=== PATIENT | male | born 1975 | race Caucasian/White ===

== ENCOUNTER 2024-01-25 11:04 | Emergency (ER) | payer OTHER, SELFPAY ==
[2024-01-25 11:06] VITALS: BP 139/98
--- NOTE | 2024-01-25 11:30 | ED.GENMED ---
History of Present Illness
General
Chief Complaint: Crisis Evaluation
Source: patient
Time Seen by Provider: 01/25/24 11:18
Travel History
Have you had any contact with someone who has COVID-19?: No
Do you have any symptoms of coronavirus? Fever > 100 degrees, chills, cough, shortness of breath, sore throat, loss of taste or smell, muscle aches, or headache?: No
History of Present Illness
History of Present Illness:
48-year-old male who presents for evaluation of a rash. He initially presented to crisis. The patient is sort of wandering and emergency department when first evaluated. Patient states he was [place] in [place] and developed
this rash. He states it is not painful or itchy. He was not sure what it was. Does admit to history of alcohol use and substance abuse. Has used cocaine and meth but is unable to tell me when.
Past History
Past History
ED Past Medical History: Psychiatric
Social History
Tobacco: Smoker
Alcohol: Daily
Drug: None
Personal: Other
Living: homeless
Employment: Not employed
Family History
Family History: Other (Noncontributory)
Phy Exam
Physical Exam
Physical Exam:
CONSTITUTIONAL Vital signs reviewed, Patient alert and oriented to person, place and time. Well-appearing
HEAD atraumatic, normocephalic.
EYES eyelids normal to inspection, Extraocular muscles intact, Conjunctiva normal, Sclera normal.
NECK normal range of motion, Trachea midline, no jugular venous distention.
RESP no respiratory distress
BACK vesicular patch noted to the right back. Small second patch noted just lateral to that. Does not cross the midline. Mild red base
UPPER EXTREMITY Gross Range of motion normal, gross motor strength normal
LOWER EXTREMITY Gross range of motion normal, Gross motor strength normal
NEURO Speech normal, No focal motor deficits include, Alycia coma scale 15, Memory normal, Cranial Nerves intact to screening exam.
SKIN Skin warm, dry, and normal in color.
PSYCHIATRIC Patient oriented to person place and time, patient is sort of hyperactive and pacing during exam. Speech is a little bit pressured but otherwise clear
Course
Vital Signs
Initial and Last Documented VS:
Initial Vital Signs
Temp Pulse Resp BP Pulse Ox
98.5 F 97 16 139/98 98
01/25/24 11:06 01/25/24 11:06 01/25/24 11:06 01/25/24 11:06 01/25/24 11:06
Last Documented Vital Signs
Temp Pulse Resp BP Pulse Ox
98.5 F 97 16 139/98 98
01/25/24 11:06 01/25/24 11:06 01/25/24 11:06 01/25/24 11:06 01/25/24 11:06
MDM/Problems Addressed
MDM/Problems Addressed:
Varicella-zoster
*Pulse Oximetry
Patient hypoxic: no
*Critical Care Note
Total Time (30-74mins, 75-104mins- exclusive of procedures): Not Applicable
Data Reviewed
Prescriptions/Medications Considered But Not Given:
Considered antivirals and steroids but patient refuses
Patient Management
Escalation/DeEscalation of care consider admission/obs:
2 patches of vesicles that I suspect is varicella as it is just to the right side of midline. No itching to suggest poison gomez or poison oak. pt refuses any medical treatment. Patient will watch closely. Discharge back to crisis if the patient
would like further consultation.
ED Attending Note
-
Portions of this chart may have been created with voice recognition software.� Occasional wrong word or��sound alike� substitutions may have occurred due to the inherent limitations of voice recognition software.
Discharge Plan
Departure
Patient Disposition: Home (Routine Discharge)
Date of Disposition: 01/25/24
Time of Disposition: 11:30
Patient with high blood pressure during this ER visit?: Yes
Discharge Problem:
Varicella zoster
Instructions: Shingles, BLOOD PRESSURE
Prescriptions:
No Action
No Current Medications
0
Activity Restrictions/Additional Instructions:
Please do not use illicit drugs. Please keep your rash clean and dry. Return immediately for fevers, worsening rash, pain or any other concerns.
Interventions
Interventions:
*General Assessment Last Done: 01/25/24 11:28
ED- Fall Risk Assessment Last Done: 01/25/24 11:22
*ED COVID-19 Vaccine History Last Done: 01/25/24 11:06
*Nursing Disposition Last Done: 01/25/24 11:44
ED-Psychological Assessment Last Done: 01/25/24 11:22
Discharge Date and Time
Discharge Date/Time: 01/25/24 11:45
Print Language: [place]
== END 2024-01-25 11:45 | disposition home or self-care (01) ==
LOC: EMR 11:04
PROVIDERS: EMERGENCY PHYSICIAN Emergency Medicine; FAMILY PHYSICIAN Family Medicine
DX: B02.9 Zoster without complications (principal); F17.200 Nicotine dependence, unspecified, uncomplicated; R03.0 Elevated blood-pressure reading, without diagnosis of hypertension
CPT/HCPCS: 99282